=== PATIENT | female | born 2000 | race Hispanic/Latino ===

== ENCOUNTER 2024-04-05 19:51 | Emergency (ER) | payer BC ==
[2024-04-05 20:22] LABS: Bacteria/HPF 1+ HPF (None Seen); Bilirubin Negative (Negative); Blood, Urine Negative (Negative); CAUTI Indications for Culture Pelvic or flank pain; Clarity Clear (Clear); Glucose, Urine (Dipstick) Negative (Negative); Ketone, Urine Negative (Negative); Leukocyte Negative (Negative); Nitrite Negative (Negative); Protein, Urine (Dipstick) Negative (Neg-Trace); RBC/HPF None Seen HPF (0-3); Specific Gravity, Urine 1.025 (1.005-1.030); Squamous Epithelial 0-3 HPF (0-3); Urobilinogen 0.2 mg/dL (Less than 2); WBC/HPF 0-3 HPF (0-3)
[2024-04-05 20:23] LABS: Pregnancy Test - Urine (BHCG) Negative (Negative); Pregu Control Background? CLEAR/WHITE (CLR/WHITE); Pregu Control Bar Appear? YES (CONTROL BAR); Specific Gravity 1.025 (1.002-1.036); Urine Culture Reflex No No
[2024-04-05] MEDS ORDERED: Fluconazole 100 MG TAB ONE (21:08)
[2024-04-05] MEDS ORDERED: Ondansetron ODT 4 MG TAB ONE (21:09)
[2024-04-05] MEDS ORDERED: Acetaminophen 500 MG TAB ONE (21:09)
[2024-04-05] MEDS ORDERED: Ibuprofen 800 MG TAB ONE (21:09)
[2024-04-05 22:12] LABS: Eosinophils 1 % (0-10); Hematocrit 41.7 % (36.0-47.0); Hemoglobin 13.2 g/dL (12.0-16.0); Lymphocytes 8 % (21-51); MDiff Complete? YES; Mean Corpuscular HGB CONC 31.6 g/dL (32.0-36.0); Mean Corpuscular Hemoglobin 28.5 pg (27.0-31.0); Monocytes 5 % (0-10); Neutrophil 86 % (42-75); Platelet Count 232 10x3/uL (130-400); RBC Distribution Width 12.9 % (11.5-14.5); Red Blood Cell (RBC) Count 4.63 mill/uL (4.20-5.40); White Blood Cell (WBC) Count 12.9 10x3/uL (4.8-10.8)
[2024-04-05 22:29] LABS: Troponin I Less than 0.010 ng/mL (< 0.028)
[2024-04-05 22:30] LABS: ALT (SGPT) 13 U/L (8-55); AST (SGOT) 16 U/L (5-34); Albumin 4.7 g/dL (3.5-5.0); Alkaline Phosphatase 42 U/L (40-110); Anion Gap 17 mmol/L (10-20); BUN (Urea Nitrogen) 16 mg/dL (7.0-18.7); Bilirubin, Total 0.6 mg/dL (0.2-1.2); Calc. Creatinine Clearance 0 mL/min (70-130); Calcium 9.7 mg/dL (7.8-10.44); Carbon Dioxide 22 mmol/L (22-29); Chloride 107 mmol/L (98-107); Estimated GFR 104; Glucose 97 mg/dL (70-105); Lipase 20 U/L (8-78); Protein, Total 6.7 g/dL (6.0-8.3); Sodium 141 mmol/L (136-145)
[2024-04-07 01:34] LABS: Chlamydia by PCR, Vaginal Swab Not Detected (NotDetected); GC by PCR, Vaginal Swab Not Detected (NotDetected)
== END 2024-04-05 22:45 | disposition home or self-care (01) ==
LOC: MADERS 19:51
DX: B37.31 Acute candidiasis of vulva and vagina (principal); R07.9 Chest pain, unspecified
CPT/HCPCS: 36415; 71046; 80053; 81001; 81025; 83690; 84484; 85025; 87480; 87491; 87510; 87591; 87660; 93005; Q0162